=== PATIENT | male | born 1970 | race Hispanic/Latino ===

== ENCOUNTER → 2022-01-19 | Outpatient (CLI) | payer BC | END | disposition home or self-care (01) | LOC: SHCH 10:16 | PROVIDERS: ATTEND Internal Medicine Cardiovascular Disease | DX: I51.7 Cardiomegaly (principal); I21.4 Non-ST elevation (NSTEMI) myocardial infarction; Z95.1 Presence of aortocoronary bypass graft; E11.9 Type 2 diabetes mellitus without complications | CPT/HCPCS: 93306 ==

== ENCOUNTER → 2025-04-01 | Emergency (ER) | payer BC ==
[~2025-04-01] VITALS: Ht 180.3 cm; Wt 99.3 kg
[~2025-04-01] MED LIST: GABA-529 PO; PRED5TAB PO; VALA10002 PO
--- NOTE | 2025-04-01 07:46 | ERN ---
General Chief Complaint: Earache Stated Complaint: EARACHE Time Seen by MD: 07:33 Source: patient, family History of Present Illness Initial Comments Patient is a 55-year-old male coming in complaining of right ear pain right facial discomfort. Per patient this has been ongoing one week. He was treated with the antibiotics for an ear infection but states he has not felt any better in his now having facial discomfort. Allergies: Coded Allergies: No Known Drug Allergies (Unverified Allergy, Unknown, 04/01/25) Home Meds Active Scripts Gabapentin (Gabapentin) 100 Mg Capsule, 1 CAP PO BID for 5 Days, #10 CAP 0 Refills Prov:MITRA GANN MD 04/01/25 Prednisone (Prednisone) 5 Mg Tablet, 25 MG PO BID for 7 Days, #14 TAB Prov:MITRA GANN MD 04/01/25 Valacyclovir HCl (Valtrex) 1,000 Mg Tablet, 1 TAB PO TID for 7 Days, #21 TAB 0 Refills Prov:MITRA GANN MD 04/01/25 Past Medical History Past Medical History: Diabetes-Type II, High Cholesterol Medical History Other: RX XARELTO FOR CABG Past Surgical History: CABG ROS Dictation CONSTITUTIONAL: No chills, no fever, no weakness, no diaphoresis, no malaise. HEAD/FACE: No signs of trauma. EENT: No eye pain, no blurred vision, no tearing, no double vision, no ear pain, no ear discharge, no nose pain, no nasal congestion, no throat pain, no throat swelling, no mouth pain. RESPIRATORY: No cough, no orthopnea, no SOB, no stridor, no wheezing. CARDIOVASCULAR: No chest pain, no edema, no palpitations, no syncope. GASTROINTESTINAL/ABDOMINAL: No abdominal pain, no constipation, no diarrhea, no nausea, no vomiting. GENITOURINARY: No abnormal discharge, no dysuria, no frequent urination, no hematuria. No complaints of pain in the genitals. MUSCULOSKELETAL: No back pain, no gout, no joint pain, no joint swelling, no muscle pain, no muscle stiffness, no neck pain. INTEGUMENTARY: No change in color, no change in hair/nails, no dryness, no lesion, no lumps, rash. NEUROLOGICAL/PSYCH: No anxiety, not depressed, no emotional problem, no headache, no numbness, no pre-existing deficit, no history of seizures, no tremors, no weakness. HEMATOLOGIC/LYMPHATIC: Not anemic, no history of blood clots, no apparent bleeding, no bruising, glands not swollen. All Systems Negative, Except as Noted. Physical Exam Physical Exam Dictation VITAL SIGNS: Reviewed. GENERAL APPEARANCE: Alert, oriented x3, no acute distress, obese. HEAD AND FACE: Non-traumatic. EYES: PERRL, pink conjunctivas, eyelid no trauma, anterior chamber clear. EARS: Pinnas intact and no signs of trauma or erythema. Ear canals clear and no discharge. TMs no erythema. NOSE: No discharge, no bleeding. OROPHARYNX: Mouth normal, teeth no caries, tongue pink. Pharynx clear, no erythema. Tonsils no exudates, no abscesses noted. Mucous membrane moist. NECK: Supple, non-tender, no thyromegaly, no masses, no JVD, no bruits. BREAST: Deferred. CHEST: No tenderness, no crepitus, no paradoxical movement, no retractions. LUNGS: Clear, well-ventilated, symmetric, no rales, no wheezing, no rhonchi, no stridor, good breath sounds bilaterally. HEART: Regular rate, regular rhythm, no murmur, no gallops. VASCULAR: No peripheral edema. ABDOMEN: Soft, positive bowel sounds, nondistended, no guarding, nontender, no rebound, no masses no hepatomegaly, no splenomegaly, no Garrido's sign, no hernias. RECTAL: Deferred. GENITAL: Deferred. NEUROLOGICAL: Normal speech, gross motor function intact, gross sensory function intact. MUSCULOSKELETAL: Neck nontender, full range of motion, back nontender, full range of motion. EXTREMITIES: Nontender, full range of motion. SKIN: Color pink, dry, no turgor, right facial shingles lesions, no lacerations, no abrasions, no contusions. LYMPHATICS: Deferred. Results Laboratory and Microbiology Labs Reviewed?: Yes MDM MDM: Differential diagnosis:, otitis media, shingles Rationale: Tests considered and ordered secondary to shared decision making include: Previous outside records reviewed: Old ER visits. Risk of complication and/or morbidity or mortality of patient management: None Medications-Per medication reconciliation Need for hospitalization: Patient does not meet criteria for hospitalization. Need for emergency major/minor surgery: No ED Course Orders Procedure Category Date Status Time Fluorescein Sodium PHA 04/01/25 Complete (Skomy-S-Rqrsw At) 08:00 Fluorescein Sodium PHA 04/01/25 Complete (Pwzzq-X-Cybkt At) 08:00 Dexamethasone 4mg/Ml PHA 04/01/25 Complete 1ml Vial (Dexametha 08:00 Gabapentin 100 Mg Cap PHA 04/01/25 Complete (Neurontin 100 Mg 08:12 Tetracaine Hcl PHA 04/01/25 Complete (Pontocaine 0.5% 08:12 Current Medications Medications (Trade) Dose Ordered Sig/Russ Route PRN Reason Start Time Stop Time Status Last Admin Dose Admin Dexamethasone Sodium Phosphate (dexaMETHasone 4MG/ML 1ML VIAL) 4 mg ONCE ONCE IM 04/01/25 08:00 04/01/25 08:01 DC 04/01/25 08:17 Fluorescein Sodium (Cezju-C-Jggkf At) 1 strip ONCE ONCE OP 04/01/25 08:00 04/01/25 08:01 DC Fluorescein Sodium (Mpcvk-L-Unnzy At) 1 strip ONCE ONCE OP 04/01/25 08:00 04/01/25 08:01 DC Gabapentin (NEURontin 100 mg CAP) 100 mg ONCE STAT PO 04/01/25 08:12 04/01/25 08:14 DC 04/01/25 08:17 Tetracaine HCl (Pontocaine 0.5% Ophth Soln) 20 drop STK-MED ONCE .ROUTE 04/01/25 08:12 04/01/25 08:12 DC Vital Signs Date Time Temp Pulse Resp B/P (MAP) Pulse Ox O2 Delivery O2 Flow Rate FiO2 04/01/25 07:36 98.1 98 16 141/95 99 Room Air* 0 21 04/01/25 07:30 98.1 99 17 141/95 99 Room Air 0 Procedure Dictation Left eyelid rash consistent with shingles HZO FLUORESCEIN EYE TEST NEGATIVE, PATIENT STATES THAT THE VISION IS INTACT NO LIMITATIONS ON OCULAR MOVEMENTS. DX & DISP Disposition: Discharge Departure Impression: Primary Impression: Shingles of eyelid Condition: Stable Scripts Gabapentin (Gabapentin) 100 Mg Capsule 1 CAP PO BID for 5 Days, #10 CAP 0 Refills Prov: MITRA GANN MD 04/01/25 Prednisone (Prednisone) 5 Mg Tablet 25 MG PO BID for 7 Days, #14 TAB Prov: MITRA GANN MD 04/01/25 Valacyclovir HCl (Valtrex) 1,000 Mg Tablet 1 TAB PO TID for 7 Days, #21 TAB 0 Refills Prov: MITRA GANN MD 04/01/25 Additional Instructions: FOLLOW-UP WITH PRIMARY CARE PROVIDER IN 1 TO 2 DAYS. TAKE MEDICATIONS DIRECTED HERE IN THE EMERGENCY ROOM. OKAY TO CONTINUE HOME MEDICATIONS UNLESS OTHERWISE DISCUSSED DURING YOUR VISIT IN THE EMERGENCY ROOM TODAY. RETURN TO YOUR NEAREST EMERGENCY ROOM IF SYMPTOMS WORSEN OR IF THERE IS NO IMPROVEMENT. CALL 911 IF YOU NEED IMMEDIATE ASSISTANCE. TAKE TYLENOL [id number] NEEDED AND IF NO CONTRAINDICATIONS ARE PRESENT. INCREASE ORAL HYDRATION. A WOUND CULTURE OR URINE CULTURE WAS ORDERED HERE IN THE EMERGENCY ROOM DEPARTMENT PLEASE FOLLOW-UP WITH PRIMARY CARE PROVIDER AND ADVISE THEM TO GET REPORTS FROM OUR FACILITY. IF YOU HAD ANY SIMI WRAP/SPLINTS THAT WERE APPLIED HERE, PLEASE DO NOT REMOVE THEM UNTIL YOU SEE YOUR PRIMARY CARE OR SPECIALTY. Referrals: Referrals: STANLEY MANUEL MD (PCP) Time of Disposition: 08:24 MITRA GANN MD Apr 01, 2025 07:46
[2025-04-01] MEDS: FLUORESCEIN SODIUM 1 STRIP STRIP OP ONE ×2 (08:24)
[2025-04-01] MEDS: TETRACAINE HCL 0.5% 4 ML OPHTH SOLN ONE (08:26)
--- NOTE | 2025-04-01 08:27 | NUR ---
Tetracaine was used by Dr Kelley for eye exam.
[2025-04-01 08:36] VITALS: BP 117/80; PULSE 91; RESP 20; TEMP 98.1; O2SAT 97
== END ==
LOC: EDH 07:28
DX: B02.9 Zoster without complications (principal); H92.01 Otalgia, right ear; E11.9 Type 2 diabetes mellitus without complications; E78.00 Pure hypercholesterolemia, unspecified; Z79.52 Long term (current) use of systemic steroids; Z79.899 Other long term (current) drug therapy; Z79.624 Long term (current) use of inhibitors of nucleotide synthesis; Z95.1 Presence of aortocoronary bypass graft
CPT/HCPCS: 99283; 96372; J1100 ×2